=== PATIENT | male | born 1990 | race African-American/Black ===

== ENCOUNTER 2018-08-13 14:18 | Emergency (ER) | payer MEDICAID ==
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
[2018-08-13 16:09] VITALS: BP 112/65
== END 2018-08-13 16:09 | disposition home or self-care (01) ==
DX: S20.219A Contusion of unspecified front wall of thorax, initial encounter (principal); V00.132A Skateboarder colliding with stationary object, initial encounter; Y92.488 Other paved roadways as the place of occurrence of the external cause; Z72.0 Tobacco use